=== PATIENT | male | born 1980 | race Caucasian/White ===

== ENCOUNTER 2020-10-11 10:35 | Outpatient (CLI) | payer BC, SELFPAY ==
--- NOTE | ~2020-10-11 | XR_ITS ---
EXAMINATION: XR chest 2V EXAM DATE: 10/11/2020 11:07 INDICATION: R50.9 - Fever X 2 WKS. NONSMOKER, NO SX . TECHNIQUE: Frontal and lateral projections of the chest obtained and reviewed. There is no prior rianna dy for comparison. FINDINGS: Some ill-defined prominent reticulation in the right mid and lower lung zone compared to co ntralateral side, new compared to prior examination. Could be acute infectious process, clinical kendra elation. No confluent consolidation, pneumothorax or pleural effusion suspected. Cardiomediastinal si lhouette is normal. Left clavicular hardware. IMPRESSION: Ill-defined right lung airspace disease could be acute infectious process. Reviewed, dictated and finalized at location B.
[2020-10-11 11:12] LABS: Basophils Percent Auto 0.2 % (0.2-1.2); Eosinophils Percent Auto 0.2 % (0-4.4); Hematocrit 39.6 % (42.0-52.0); Hemoglobin 12.8 g/dL (14.0-18.0); Immature Granulocyte Absolute 0.09 K/mm3 (0.00-0.031); Immature Granulocyte Percent A 0.8 % (0-0.5); Lymphocytes Absolute Auto 1.14 K/mm3 (0.9-3.2); Lymphocytes Percent Auto 10.2 % (18.3-44.2); Mean Corpuscular HGB Conc 32.3 g/dl (32-36); Mean Corpuscular Volume 83.5 fl (80-100); Mean Platelet Volume 9.5 fl (7.4-10.4); Monocytes Absolute Auto 0.2 K/mm3 (0.1-0.6); Monocytes Percent Auto 2.1 % (2.6-8.5); Neutrophils Absolute Auto 9.7 K/mm3 (1.3-6.7); Neutrophils Percent Auto 86.5 % (45.5-73.1); Platelet Count Result 578 k/mm3 (150-375); Red Blood Count 4.74 M/mm3 (4.6-6.20); Red Cell Distribution Width 13.1 % (11.5-14.5); White Blood Count 11.2 K/mm3 (4.5-10.0)
[2020-10-11 11:43] LABS: Alanine Aminotransferase 122 U/L (4-50); Albumin Level 4.5 g/dL (3.5-5.1); Alkaline Phosphatase 158 U/L (38-126); Anion Gap 13 mmol/L (8-16); Aspartate Amino Transferase 63 U/L (17-59); Bilirubin,Total 1.1 mg/dL (0.2-1.3); Blood Urea Nitrogen 10 mg/dL (9-20); Calcium 9.5 mg/dL (8.4-10.2); Carbon Dioxide 25 mmol/L (22-30); Chloride 99 mmol/L (98-107); Erythrocyte Sedimentation Rate 42 mm/hr (0-20); Estimated Glomerular Filt Rate > 60; Glucose 117 mg/dL (65-110); Potassium 4.5 mmol/L (3.4-5.0); Sodium 137 mmol/L (137-145)
[2020-10-13 11:57] LABS: CRP, High Sensitivity >10.0 mg/L (***)
== END 2020-10-11 10:36 | disposition home or self-care (01) ==
PROVIDERS: PCP Family Medicine; Visit Provider Physician Assistant
DX: R50.9 Fever, unspecified (principal); R03.0 Elevated blood-pressure reading, without diagnosis of hypertension; R91.8 Other nonspecific abnormal finding of lung field
CPT/HCPCS: 36415; 71046; 80053; 85025; 85652; 86141; 87040

== ENCOUNTER 2020-11-09 08:53 | Outpatient (CLI) | payer BC, SELFPAY ==
--- NOTE | ~2020-11-09 | CT_ITS ---
EXAMINATION: CTA chest PE protocol EXAM DATE: 11/09/2020 09:12 INDICATION: R09.02 - Hypoxemia. TECHNIQUE: Spiral CTA of the chest (pulmonary arteries) was performed with 100 cc Omnipaque 350 intr avenous contrast injection. Images were acquired during the pulmonary arterial phase. Coronal maxi mum intensity projection 3D-reconstructions were created by the technologist on dedicated workstation . Axial, coronal and sagittal reformatted images were reviewed. The dose-length product (DLP) for t his examination was 525.19 mGy-cm. The exposure was tailored according to patient size (auto mA exp osure control), and iterative reconstruction (ASIR) was used as additional dose reduction technique. There is no prior study for comparison. FINDINGS: Scattered bilateral centrilobular predominant faint groundglass opacities. Differential itzel gnosis includes acute or chronic infection, pulmonary hemorrhage, vasculitis, pulmonary edema, hypers ensitivity pneumonitis, respiratory bronchiolitis, respiratory bronchiolitis-interstitial lung diseas e (RB-ILD, smoking related process). Please clinically correlate. No confluent consolidation. There is 5 mm pleural-based right middle lobe nodule along the minor fissure, most likely postinfecti ous. Pulmonary arteries are well opacified and without intraluminal filling defects. No thoracic ao rtic dissection. There are no pleural or pericardial effusions. Tracheobronchial tree is patent. There is no mediastinal, hilar or axillary lymphadenopathy. There is no pneumothorax. Heart norm al in size. No evidence of coronary arterial calcification. Upper abdomen is unremarkable. There is thoracic spondylosis without osteoblastic or osteolytic lesions identified. IMPRESSION: 1. Faint but diffuse distribution centrilobular groundglass opacities. Multiple possible underlying etiologies including acute or chronic infection, pulmonary hemorrhage, vasculitis, pulmonary edema, h ypersensitivity pneumonitis, respiratory bronchiolitis, respiratory bronchiolitis-interstitial lung d isease (RB-ILD, smoking related process). Please clinically correlate. 2. No pulmonary emboli. Reviewed, dictated and finalized at location A. IMPRESSION: 1. Faint but diffuse distribution centrilobular groundglass opacities. Multipl e possible underlying etiologies including acute or chronic infection, pulmonar y hemorrhage, vasculitis, pulmonary edema, hypersensitivity pneumonitis, respir atory bronchiolitis, respiratory bronchiolitis-interstitial lung disease (RB-IL D, smoking related process). Please clinically correlate. 2. No pulmonary emboli.
[2020-11-09 09:49] LABS: Basophils Percent Auto 0.3 % (0.2-1.2); Eosinophils Absolute Auto 0.1 K/mm3 (0-0.3); Eosinophils Percent Auto 0.8 % (0-4.4); Hematocrit 38.5 % (42.0-52.0); Hemoglobin 12.7 g/dL (14.0-18.0); Immature Granulocyte Absolute 0.06 K/mm3 (0.00-0.031); Immature Granulocyte Percent A 0.8 % (0-0.5); Lymphocytes Absolute Auto 1.21 K/mm3 (0.9-3.2); Lymphocytes Percent Auto 15.8 % (18.3-44.2); Mean Corpuscular Hemoglobin 27.2 pg (26-34); Mean Corpuscular Volume 82.4 fl (80-100); Mean Platelet Volume 10.1 fl (7.4-10.4); Monocytes Absolute Auto 0.2 K/mm3 (0.1-0.6); Monocytes Percent Auto 2.3 % (2.6-8.5); Neutrophils Absolute Auto 6.1 K/mm3 (1.3-6.7); Platelet Count Result 301 k/mm3 (150-375); Red Blood Count 4.67 M/mm3 (4.6-6.20); Red Cell Distribution Width 14.6 % (11.5-14.5); White Blood Count 7.7 K/mm3 (4.5-10.0)
[2020-11-09 10:03] LABS: Alanine Aminotransferase 48 U/L (4-50); Albumin Level 4.5 g/dL (3.5-5.1); Alkaline Phosphatase 108 U/L (38-126); Anion Gap 12 mmol/L (8-16); Aspartate Amino Transferase 36 U/L (17-59); Blood Urea Nitrogen 12 mg/dL (9-20); Calcium 9.4 mg/dL (8.4-10.2); Carbon Dioxide 27 mmol/L (22-30); Chloride 96 mmol/L (98-107); Estimated Glomerular Filt Rate > 60; Glucose 135 mg/dL (65-110); Potassium 4.2 mmol/L (3.4-5.0); Sodium 135 mmol/L (137-145)
== END 2020-11-09 08:54 | disposition home or self-care (01) ==
PROVIDERS: PCP Family Medicine; Visit Provider Family Medicine
DX: R19.7 Diarrhea, unspecified (principal); R09.02 Hypoxemia; R50.9 Fever, unspecified; I10 Essential (primary) hypertension
CPT/HCPCS: 36415; 71275; 80053; 85025; Q9967

== ENCOUNTER 2022-03-22 09:19 | Outpatient (CLI) | payer BC, SELFPAY ==
[2022-03-22 10:25] LABS: Basophils Absolute Auto 0.1 K/mm3 (0.0-0.1); Basophils Percent Auto 0.9 % (0.2-1.2); Eosinophils Absolute Auto 0.1 K/mm3 (0-0.3); Eosinophils Percent Auto 2.3 % (0-4.4); Hematocrit 43.5 % (42.0-52.0); Hemoglobin 14.2 g/dL (14.0-18.0); Immature Granulocyte Absolute 0.02 K/mm3 (0.00-0.031); Immature Granulocyte Percent A 0.4 % (0-0.5); Lymphocytes Absolute Auto 1.93 K/mm3 (0.9-3.2); Lymphocytes Percent Auto 34.6 % (18.3-44.2); Mean Corpuscular HGB Conc 32.6 g/dl (32-36); Mean Corpuscular Volume 85.6 fl (80-100); Mean Platelet Volume 10.1 fl (7.4-10.4); Monocytes Absolute Auto 0.6 K/mm3 (0.1-0.6); Monocytes Percent Auto 9.9 % (2.6-8.5); Neutrophils Absolute Auto 2.9 K/mm3 (1.3-6.7); Neutrophils Percent Auto 51.9 % (45.5-73.1); Platelet Count Result 273 k/mm3 (150-375); Red Blood Count 5.08 M/mm3 (4.6-6.20); Red Cell Distribution Width 13.5 % (11.5-14.5); White Blood Count 5.6 K/mm3 (4.5-10.0)
[2022-03-22 10:38] LABS: Alanine Aminotransferase 23 U/L (6-50); Albumin Level 4.6 g/dL (3.5-5.1); Alkaline Phosphatase 87 U/L (38-126); Anion Gap 4 mmol/L (8-16); Aspartate Amino Transferase 22 U/L (17-59); Bilirubin,Total 0.4 mg/dL (0.2-1.3); Blood Urea Nitrogen 13 mg/dL (9-20); Calcium 9.1 mg/dL (8.4-10.2); Carbon Dioxide 29 mmol/L (22-30); Chloride 104 mmol/L (98-107); Cholesterol 292 mg/dL (0-200); Estimated Glomerular Filt Rate > 60; Glucose 105 mg/dL (65-110); HDL Direct 42 mg/dL; Potassium 4.5 mmol/L (3.4-5.0); Sodium 137 mmol/L (137-145); Triglycerides 119 mg/dL (<150)
[2022-03-22 10:49] LABS: LDL Cholesterol Direct 172 mg/dL
[2022-03-22 11:43] LABS: Hemoglobin A1C 5.5 % (<5.7)
== END 2022-03-22 09:20 | disposition home or self-care (01) ==
LOC: ANHLAB 09:20
PROVIDERS: PCP Family Medicine; Visit Provider Family Medicine
DX: Z00.00 Encounter for general adult medical examination without abnormal findings (principal); E78.2 Mixed hyperlipidemia; F41.1 Generalized anxiety disorder; I10 Essential (primary) hypertension; R00.0 Tachycardia, unspecified; Z13.220 Encounter for screening for lipoid disorders
CPT/HCPCS: 36415; 80053; 80061; 83036; 84443; 85025